=== PATIENT | female | born 1995 | race African-American/Black ===

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

== ENCOUNTER 2017-06-25 00:44 | Emergency (ER) | payer MEDICAID ==
[~2017-06-25] VITALS: Ht 175.3 cm; Wt 68.2 kg
[2017-06-25] MEDS ORDERED: HYDROCODONE/ACETAMINOPHEN 5/325MG TABLET PO ONE ×2 (04:45→08:15)
[2017-06-25 09:18] VITALS: BP 115/65
== END 2017-06-25 09:19 | disposition short-term general hospital (02) ==
LOC: ER 00:44
DX: S02.82XA Fracture of other specified skull and facial bones, left side, initial encounter for closed fracture (principal); F17.200 Nicotine dependence, unspecified, uncomplicated; Y04.0XXA Assault by unarmed brawl or fight, initial encounter; Y93.89 Activity, other specified; Y92.89 Other specified places as the place of occurrence of the external cause; Y99.8 Other external cause status
CPT/HCPCS: 70486; 81025; 99285